=== PATIENT | female | born 1950 | race Caucasian/White ===

== ENCOUNTER 2016-03-30 08:29 | Emergency (ER) | payer MEDICARE ==
[2016-03-30] MEDS ORDERED: OPTIRAY 350 100 ML VIAL HMH IV ONE (08:30)
[2016-03-30] MEDS ORDERED: LIDOCAINE 2% VISC 15 ML UDC ONE (08:55)
[2016-03-30] MEDS ORDERED: ALU/MAG/SIM 30 ML UDC ONE (08:55)
[2016-03-30] MEDS ORDERED: ONDANSETRON ODT 4 MG TAB ONE (08:55)
[2016-03-30] MEDS ORDERED: SODIUM CHLORIDE 0.9% 1,000 ML ONE (09:55)
[2016-03-30] MEDS ORDERED: KETOROLAC 30 MG/ML VIAL ONE (10:51)
[2016-03-30] MEDS ORDERED: ONDANSETRON 4 MG VIAL ONE (10:51)
[2016-03-30] MEDS ORDERED: MORPHINE 4 MG/ML SYR ONE (13:26)
== END 2016-03-30 14:35 | disposition home or self-care (01) ==
LOC: ER 08:29
DX: K29.00 Acute gastritis without bleeding (principal); K29.80 Duodenitis without bleeding; R06.02 Shortness of breath; I10 Essential (primary) hypertension; E78.00 Pure hypercholesterolemia, unspecified; M06.9 Rheumatoid arthritis, unspecified; E07.9 Disorder of thyroid, unspecified
CPT/HCPCS: 36415; 71020; 74177; 80053; 81003; 82553; 83690; 84484; 85025; 93005

== ENCOUNTER 2016-03-31 13:13 | Inpatient (IN) | payer MEDICARE ==
[~2016-03-31] VITALS: Ht 165.1 cm; Wt 93.0 kg
[2016-03-31] VITALS (15 sets, daily range): BP systolic 107–128; RESP 16–24; TEMP 97.4–98.4
[~2016-03-31 13:13] MED LIST: ACETAMINOPHEN 1,000 MG/100 ML IV ONE; BUPIVACA/EPI 0.25% PF 30ML NERVEBLOCK ONE; FENTANYL 100 MCG/2 ML AMP IV ONE; GLYCOPYRROLATE 0.2 MG/ML VIAL IV ONE; LIDOCAINE 1% 20ML NERVEBLOCK ONE; NEOSTIGMINE 10 MG/10 ML VIAL IV ONE; ONDANSETRON 4 MG VIAL IV PUSH ONE; PROPOFOL 20 ML PER ML IV ONE; ROCURONIUM 50 MG VIAL IV ONE; SUCCINYLCHOLINE 20 MG/ML VL IV ONE
[2016-03-31] MEDS ORDERED: ONDANSETRON 4 MG VIAL ONE (14:42)
[2016-03-31] MEDS ORDERED: SODIUM CHLORIDE 0.9% 1,000 ML ONE (14:43)
[2016-03-31] MEDS ORDERED: DILAUDID 1 MG/ML AMP ONE ×2 (14:43→17:02)
[2016-03-31] MEDS ORDERED: LACT RINGERS 1,000 ML IV ONE (16:01)
[2016-03-31] MEDS ORDERED: MORPHINE 4 MG/ML SYR IV PRN (18:45)
[2016-03-31] MEDS ORDERED: ONDANSETRON 4 MG VIAL IV PRN (18:45)
[2016-03-31] MEDS ORDERED: DILAUDID 1 MG/ML AMP IV PRN (18:45)
[2016-03-31] MEDS ORDERED: MORPHINE 2 MG/ML SYR IV PRN (18:45)
[2016-03-31] MEDS ORDERED: MEPERIDINE 25 MG/ML IV PRN (18:45)
[2016-03-31] MEDS ORDERED: OXYCODONE 5 MG TAB PO PRN (18:45)
[2016-03-31] MEDS ORDERED: LEVOFLOXACIN 750 MG/150 ML 150 ML IV SCH (20:38)
[2016-03-31] MEDS ORDERED: DILAUDID 0.2 MG/ML PCA IV SCH (20:40)
[2016-03-31] MEDS ORDERED: SALINE FLUSH 10 ML FLUSH PRN (20:40)
[2016-03-31] MEDS ORDERED: PROMETHAZINE 25 MG/ML VIAL IV PRN (20:40)
[2016-03-31] MEDS: DILAUDID 0.2 MG/ML PCA IV SCH (21:24)
[2016-03-31] MEDS ORDERED: NEB-ALBUTEROL 2.5 MG/3 ML INH PRN (21:35)
[2016-03-31] MEDS ORDERED: [UNRECOGNIZED DRUG - OTHER] ONE (21:40)
[2016-04-01] VITALS (27 sets, daily range): BP systolic 92–127; RESP 14–23; TEMP 98–99.5
[2016-04-01] MEDS: SODIUM CHLORIDE 0.9% FLUSH BAG 500 ML IV SCH (06:00)
[2016-04-01] MEDS ORDERED: LACT RINGERS 1,000 ML IV ONE ×2 (07:45→13:45)
[2016-04-01] MEDS ORDERED: FAMOTIDINE 20 MG INJ IV SCH (08:00)
[2016-04-01] MEDS: SALINE FLUSH 10 ML FLUSH SCH ×2 (08:03→21:00)
[2016-04-01] MEDS: LEVOFLOXACIN 500 MG/100 ML 100 ML IV SCH (08:03)
[2016-04-01] MEDS: LEVOTHYROXINE 0.1 MG IV SCH (10:55)
[2016-04-01] MEDS: DUONEB INH PRN (12:10)
[2016-04-01] MEDS: SODIUM CHLORIDE 0.9% 1,000 ML IV SCH (13:58)
[2016-04-01] MEDS ORDERED: MORPHINE 4 MG/ML SYR IV PRN (18:20)
[2016-04-01] MEDS ORDERED: MORPHINE 2 MG/ML SYR IV PRN (18:20)
[2016-04-01] MEDS ORDERED: MEPERIDINE 25 MG/ML IV PRN (18:20)
[2016-04-01] MEDS ORDERED: OXYCODONE 5 MG TAB PO PRN (18:20)
[2016-04-01] MEDS ORDERED: ONDANSETRON 4 MG VIAL IV PRN (18:20)
[2016-04-01] MEDS ORDERED: DILAUDID 1 MG/ML AMP IV PRN (18:20)
[2016-04-01] MEDS: NEB-BROVANA 15 MCG/2 ML INH SCH (19:00)
[2016-04-01] MEDS: PANTOPRAZOLE 80 MG in SODIUM CHLORIDE 0.9% 250 ML IV SCH (21:00)
[2016-04-02] VITALS (27 sets, daily range): BP systolic 91–134; RESP 10–26; TEMP 98.4–100.5; BMI 34.1
[2016-04-02] MEDS ORDERED: MISSING DOSE XX ONE (01:45)
[2016-04-02] MEDS: PANTOPRAZOLE 80 MG in SODIUM CHLORIDE 0.9% 250 ML IV SCH ×3 (03:25→22:44)
[2016-04-02] MEDS: SODIUM CHLORIDE 0.9% 1,000 ML IV SCH ×3 (03:25→22:44)
[2016-04-02] MEDS: SODIUM CHLORIDE 0.9% FLUSH BAG 500 ML IV SCH (03:26)
[2016-04-02] MEDS: LEVOTHYROXINE 0.1 MG IV SCH (07:52)
[2016-04-02] MEDS: LEVOFLOXACIN 500 MG/100 ML 100 ML IV SCH (07:53)
[2016-04-02] MEDS: SALINE FLUSH 10 ML FLUSH SCH ×2 (07:54→20:09)
[2016-04-02] MEDS ORDERED: [UNRECOGNIZED DRUG - REMARK] XX SCH (08:00)
[2016-04-02] MEDS: NEB-BROVANA 15 MCG/2 ML INH SCH ×2 (08:08→20:02)
[2016-04-02] MEDS ORDERED: ALBUMIN HUMAN 25GM (25%) 100 ML IV ONE (08:45)
[2016-04-02] MEDS ORDERED: LACT RINGERS 500 ML IV ONE (08:50)
[2016-04-03] VITALS (20 sets, daily range): BP systolic 104–159; RESP 16–26; TEMP 97.9–99.9; Ht 165.1 cm; Wt 93.0 kg
[2016-04-03] MEDS: SODIUM CHLORIDE 0.9% 1,000 ML IV SCH ×2 (04:20→23:00)
[2016-04-03] MEDS: SODIUM CHLORIDE 0.9% FLUSH BAG 500 ML IV SCH (06:00)
[2016-04-03] MEDS: NEB-BROVANA 15 MCG/2 ML INH SCH ×2 (07:38→22:16)
[2016-04-03] MEDS: SALINE FLUSH 10 ML FLUSH SCH ×2 (08:58→19:54)
[2016-04-03] MEDS: LEVOTHYROXINE 0.1 MG IV SCH (08:58)
[2016-04-03] MEDS: LEVOFLOXACIN 500 MG/100 ML 100 ML IV SCH (08:59)
[2016-04-03] MEDS: PANTOPRAZOLE 80 MG in SODIUM CHLORIDE 0.9% 250 ML IV SCH ×2 (08:59→19:53)
[2016-04-03] MEDS ORDERED: MISSING DOSE XX ONE (21:45)
[2016-04-03] MEDS: DUONEB INH PRN (22:16)
[2016-04-04 03:13] VITALS: BP_SYST 156; RESP 18; TEMP 98.1
[2016-04-04] MEDS: SODIUM CHLORIDE 0.9% FLUSH BAG 500 ML IV SCH (05:07)
[2016-04-04] MEDS: PANTOPRAZOLE 80 MG in SODIUM CHLORIDE 0.9% 250 ML IV SCH (05:33)
[2016-04-04] MEDS: NEB-BROVANA 15 MCG/2 ML INH SCH ×2 (06:24→19:02)
[2016-04-04 07:30] VITALS: BP_SYST 163; RESP 15; TEMP 98.1
[2016-04-04] MEDS: SALINE FLUSH 10 ML FLUSH SCH ×2 (08:00→20:44)
[2016-04-04] MEDS ORDERED: POTASSIUM PHOSPHATE 45 MMOL in SODIUM CHLORIDE 0.9% 500 ML IV ONE (08:05)
[2016-04-04] MEDS: LEVOFLOXACIN 500 MG/100 ML 100 ML IV SCH (08:51)
[2016-04-04] MEDS: DILAUDID 0.2 MG/ML PCA IV SCH (09:00)
[2016-04-04] MEDS ORDERED: MISSING DOSE XX ONE (09:30)
[2016-04-04] MEDS: LEVOTHYROXINE 0.1 MG IV SCH (10:30)
[2016-04-04 12:14] VITALS: BP_SYST 170; RESP 15; TEMP 97.8
[2016-04-04] MEDS ORDERED: Losartan 25 MG TAB PO SCH (14:40)
[2016-04-04 15:43] VITALS: BP_SYST 163; RESP 15; TEMP 98.2
[2016-04-04 19:30] VITALS: BP_SYST 164; RESP 16; TEMP 98.8
[2016-04-04] MEDS: PANTOPRAZOLE 40 MG VIAL IV SCH (20:44)
[2016-04-04 23:26] VITALS: BP_SYST 153; RESP 18; TEMP 98.6
[2016-04-05] MEDS: SODIUM CHLORIDE 0.9% 1,000 ML IV SCH (00:06)
[2016-04-05] MEDS: SODIUM CHLORIDE 0.9% FLUSH BAG 500 ML IV SCH (05:57)
[2016-04-05] MEDS: NEB-BROVANA 15 MCG/2 ML INH SCH ×2 (07:12→19:40)
[2016-04-05 07:26] VITALS: BP_SYST 161; RESP 18; TEMP 98.8
[2016-04-05] MEDS ORDERED: MISSING DOSE XX ONE (07:50)
[2016-04-05] MEDS: LEVOTHYROXINE 0.1 MG IV SCH (08:56)
[2016-04-05] MEDS: SALINE FLUSH 10 ML FLUSH SCH ×2 (08:56→19:44)
[2016-04-05] MEDS: PANTOPRAZOLE 40 MG VIAL IV SCH ×2 (08:56→20:36)
[2016-04-05] MEDS: LEVOFLOXACIN 500 MG/100 ML 100 ML IV SCH (08:57)
[2016-04-05] MEDS: Losartan 50 MG TAB PO SCH (08:57)
[2016-04-05 11:12] VITALS: BP_SYST 166; RESP 16; TEMP 98
[2016-04-05 15:12] VITALS: BP_SYST 179; RESP 16; TEMP 99.2
[2016-04-05 19:42] VITALS: BP_SYST 157; RESP 18; TEMP 99.6
[2016-04-05 23:28] VITALS: BP_SYST 140; RESP 18; TEMP 98.6
[2016-04-06 03:35] VITALS: BP_SYST 104; RESP 18; TEMP 98
[2016-04-06] MEDS: SODIUM CHLORIDE 0.9% 1,000 ML IV SCH (03:36)
[2016-04-06] MEDS: SODIUM CHLORIDE 0.9% FLUSH BAG 500 ML IV SCH (04:17)
[2016-04-06] MEDS: NEB-BROVANA 15 MCG/2 ML INH SCH ×2 (06:15→19:09)
[2016-04-06 07:36] VITALS: BP_SYST 155; RESP 16; TEMP 97.9
[2016-04-06] MEDS: SALINE FLUSH 10 ML FLUSH SCH ×2 (07:39→21:21)
[2016-04-06] MEDS: PANTOPRAZOLE 40 MG VIAL IV SCH ×2 (08:14→21:20)
[2016-04-06] MEDS: LEVOTHYROXINE 0.1 MG IV SCH (08:15)
[2016-04-06] MEDS: LEVOFLOXACIN 500 MG/100 ML 100 ML IV SCH (08:15)
[2016-04-06] MEDS: Losartan 50 MG TAB PO SCH (08:16)
[2016-04-06] MEDS ORDERED: MAGNESIUM SULF 1 GM/100 ML 100 ML IV ONE (09:35)
[2016-04-06] MEDS ORDERED: POTASSIUM PHOSPHATE 15 MMOL in SODIUM CHLORIDE 0.9% 250 ML IV ONE (09:35)
[2016-04-06] MEDS ORDERED: KCL 20 MEQ/15 ML UDC PO ONE (09:35)
[2016-04-06] MEDS: DILAUDID 0.2 MG/ML PCA IV SCH (10:36)
[2016-04-06] MEDS ORDERED: SODIUM CHLORIDE 0.9% 1,000 ML IV SCH (11:05)
[2016-04-06 11:36] VITALS: BP_SYST 150; RESP 16; TEMP 98.6
[2016-04-06] MEDS: HCTZ 12.5 MG CAP PO SCH (12:37)
[2016-04-06 15:04] VITALS: BP_SYST 159; RESP 16; TEMP 99.2
[2016-04-06] MEDS ORDERED: ACETAMINOPHEN 325 MG TAB PO PRN (19:00)
[2016-04-06 19:49] VITALS: BP_SYST 160; RESP 16; TEMP 98.3
[2016-04-06] MEDS: FLUOXETINE 20 MG CAP PO SCH (21:20)
[2016-04-06 23:37] VITALS: BP_SYST 126; RESP 18; TEMP 98.7
[2016-04-07 03:18] VITALS: BP_SYST 127; RESP 18; TEMP 98.2
[2016-04-07] MEDS: SODIUM CHLORIDE 0.9% FLUSH BAG 500 ML IV SCH (05:26)
[2016-04-07] MEDS: ONDANSETRON 4 MG VIAL IV PUSH PRN ×3 (05:26→17:43)
[2016-04-07] MEDS: LEVOTHYROXINE 0.088 MG TAB PO SCH (06:08)
[2016-04-07] MEDS: NEB-BROVANA 15 MCG/2 ML INH SCH ×2 (06:13→20:11)
[2016-04-07] MEDS: SALINE FLUSH 10 ML FLUSH SCH ×2 (08:00→22:00)
[2016-04-07 08:04] VITALS: BP_SYST 131; RESP 18; TEMP 98.4
[2016-04-07] MEDS: Losartan 50 MG TAB PO SCH (08:26)
[2016-04-07] MEDS: FLUOXETINE 20 MG CAP PO SCH ×2 (08:26→22:00)
[2016-04-07] MEDS: PRAVASTATIN 20 MG TAB PO SCH (08:26)
[2016-04-07] MEDS: PANTOPRAZOLE 40 MG VIAL IV SCH (08:26)
[2016-04-07] MEDS: LEVOFLOXACIN 500 MG/100 ML 100 ML IV SCH (08:28)
[2016-04-07] MEDS: HCTZ 12.5 MG CAP PO SCH (08:29)
[2016-04-07] MEDS ORDERED: DILAUDID 1 MG/ML AMP IV PRN (10:15)
[2016-04-07 11:06] VITALS: BP_SYST 134; RESP 16; TEMP 98
[2016-04-07] MEDS ORDERED: ALU/MAG/SIM 30 ML UDC PO ONE (12:20)
[2016-04-07 15:14] VITALS: BP_SYST 132; RESP 18; TEMP 98.3
[2016-04-07] MEDS: PANTOPRAZOLE 40 MG TAB PO SCH (17:43)
[2016-04-07 20:27] VITALS: BP_SYST 143; RESP 16; TEMP 98.1
[2016-04-07 23:14] VITALS: BP_SYST 134; RESP 16; TEMP 98
[2016-04-08 03:13] VITALS: BP_SYST 128; RESP 18; TEMP 97.9
[2016-04-08] MEDS: SODIUM CHLORIDE 0.9% FLUSH BAG 500 ML IV SCH (05:41)
[2016-04-08] MEDS: LEVOTHYROXINE 0.088 MG TAB PO SCH (06:06)
[2016-04-08] MEDS: PANTOPRAZOLE 40 MG TAB PO SCH ×2 (06:07→16:24)
[2016-04-08] MEDS: NEB-BROVANA 15 MCG/2 ML INH SCH ×2 (06:17→20:16)
[2016-04-08 07:32] VITALS: BP_SYST 134; RESP 16; TEMP 97.8
[2016-04-08] MEDS: HCTZ 12.5 MG CAP PO SCH (08:34)
[2016-04-08] MEDS: SALINE FLUSH 10 ML FLUSH SCH ×2 (08:34→20:02)
[2016-04-08] MEDS: PRAVASTATIN 20 MG TAB PO SCH (08:34)
[2016-04-08] MEDS: FLUOXETINE 20 MG CAP PO SCH ×2 (08:35→20:02)
[2016-04-08] MEDS: Losartan 50 MG TAB PO SCH (08:35)
[2016-04-08] MEDS: OMNIPAQUE 240 MG/ML, 50 ML PO SCH ×2 (09:41→11:43)
[2016-04-08 11:29] VITALS: BP_SYST 122; RESP 16; TEMP 98.2
[2016-04-08 14:59] VITALS: BP_SYST 137; RESP 16; TEMP 97.7
[2016-04-08] MEDS ORDERED: OPTIRAY 350 100 ML VIAL HMH IV ONE (16:03)
[2016-04-08 19:50] VITALS: BP_SYST 148; RESP 16; TEMP 98.5
[2016-04-09] VITALS (7 sets, daily range): BP systolic 126–147; RESP 16–20; TEMP 98.2–98.9
[2016-04-09] MEDS: SODIUM CHLORIDE 0.9% FLUSH BAG 500 ML IV SCH (05:04)
[2016-04-09] MEDS: LEVOTHYROXINE 0.088 MG TAB PO SCH (05:57)
[2016-04-09] MEDS: PANTOPRAZOLE 40 MG TAB PO SCH ×2 (05:57→16:11)
[2016-04-09] MEDS: NEB-BROVANA 15 MCG/2 ML INH SCH ×2 (06:20→20:22)
[2016-04-09] MEDS ORDERED: KCL CR 20 MEQ TAB PO ONE (08:00)
[2016-04-09] MEDS ORDERED: Furosemide 20 MG/2 ML VIAL IV ONE ×2 (08:00→13:50)
[2016-04-09] MEDS: HCTZ 12.5 MG CAP PO SCH (08:38)
[2016-04-09] MEDS: SALINE FLUSH 10 ML FLUSH SCH ×2 (08:38→20:35)
[2016-04-09] MEDS: FLUOXETINE 20 MG CAP PO SCH ×2 (08:38→20:34)
[2016-04-09] MEDS: Losartan 50 MG TAB PO SCH (08:38)
[2016-04-09] MEDS: PRAVASTATIN 20 MG TAB PO SCH (08:38)
[2016-04-10] VITALS (7 sets, daily range): BP systolic 102–142; RESP 16–20; TEMP 97.8–98.1
[2016-04-10] MEDS: SODIUM CHLORIDE 0.9% FLUSH BAG 500 ML IV SCH (05:02)
[2016-04-10] MEDS: LEVOTHYROXINE 0.088 MG TAB PO SCH (06:35)
[2016-04-10] MEDS: PANTOPRAZOLE 40 MG TAB PO SCH ×2 (06:35→16:56)
[2016-04-10] MEDS: NEB-BROVANA 15 MCG/2 ML INH SCH ×2 (06:59→18:12)
[2016-04-10] MEDS: FLUOXETINE 20 MG CAP PO SCH ×2 (07:40→21:16)
[2016-04-10] MEDS: HCTZ 12.5 MG CAP PO SCH (07:40)
[2016-04-10] MEDS: SALINE FLUSH 10 ML FLUSH SCH ×2 (07:41→21:16)
[2016-04-10] MEDS: PRAVASTATIN 20 MG TAB PO SCH (07:41)
[2016-04-10] MEDS: Losartan 50 MG TAB PO SCH (07:41)
[2016-04-10] MEDS ORDERED: CLINDAMYCIN 300 MG CAP PO SCH (09:00)
[2016-04-10] MEDS: CLINDAMYCIN 150 MG CAP PO SCH ×3 (11:05→21:16)
[2016-04-11] VITALS (7 sets, daily range): BP systolic 98–133; RESP 16–18; TEMP 98.1–98.3
[2016-04-11] MEDS: SODIUM CHLORIDE 0.9% FLUSH BAG 500 ML IV SCH (05:19)
[2016-04-11] MEDS: PANTOPRAZOLE 40 MG TAB PO SCH (05:59)
[2016-04-11] MEDS: LEVOTHYROXINE 0.088 MG TAB PO SCH (05:59)
[2016-04-11] MEDS: SALINE FLUSH 10 ML FLUSH SCH (07:54)
[2016-04-11] MEDS: PRAVASTATIN 20 MG TAB PO SCH (07:55)
[2016-04-11] MEDS: Losartan 50 MG TAB PO SCH (07:55)
[2016-04-11] MEDS: CLINDAMYCIN 150 MG CAP PO SCH (07:55)
[2016-04-11] MEDS: FLUOXETINE 20 MG CAP PO SCH (07:55)
[2016-04-11] MEDS: HCTZ 12.5 MG CAP PO SCH (07:55)
[2016-04-11] MEDS: NEB-BROVANA 15 MCG/2 ML INH SCH (08:10)
[2016-04-11] MEDS ORDERED: KCL 20 MEQ/15 ML UDC PO ONE (09:30)
[2016-04-11] MEDS ORDERED: KCL CR 20 MEQ TAB PO ONE (12:20)
== END 2016-04-11 15:38 | disposition home or self-care (01) | DRG 326 ==
LOC: ENRESERV → ENRESERVDT → ENRESERVTM → ER 13:13 → SDS 20:38 → 5THW 22:09 → ICU 04-01 21:08 → 5THE 04-03 17:17
PROVIDERS: ADMIT Surgery; ATTEND Surgery
PROC: 0W9G30Z Drainage of Peritoneal Cavity with Drainage Device, Percutaneous Approach (ICD-10-PCS; 2016-03-31)
PROC: 0DU947Z Supplement Duodenum with Autologous Tissue Substitute, Percutaneous Endoscopic Approach (ICD-10-PCS; principal; 2016-03-31 18:19)
PROC: 0DQ90ZZ Repair Duodenum, Open Approach (ICD-10-PCS; 2016-04-01)
PROC: 0W9G00Z Drainage of Peritoneal Cavity with Drainage Device, Open Approach (ICD-10-PCS; 2016-04-01)
DX: K26.5 Chronic or unspecified duodenal ulcer with perforation (principal); A41.9 Sepsis, unspecified organism; J96.01 Acute respiratory failure with hypoxia; R65.20 Severe sepsis without septic shock; N17.9 Acute kidney failure, unspecified; J98.11 Atelectasis; T85.638A Leakage of other specified internal prosthetic devices, implants and grafts, initial encounter; T81.4XXA Infection following a procedure, initial encounter; L03.311 Cellulitis of abdominal wall; Z87.891 Personal history of nicotine dependence; Z79.82 Long term (current) use of aspirin; E03.9 Hypothyroidism, unspecified; K21.9 Gastro-esophageal reflux disease without esophagitis; M06.9 Rheumatoid arthritis, unspecified; F32.9 Major depressive disorder, single episode, unspecified; R74.0 Nonspecific elevation of levels of transaminase and lactic acid dehydrogenase [LDH]; R73.9 Hyperglycemia, unspecified; E83.51 Hypocalcemia; Y83.2 Surgical operation with anastomosis, bypass or graft as the cause of abnormal reaction of the patient, or of later complication, without mention of misadventure at the time of the procedure; Y92.239 Unspecified place in hospital as the place of occurrence of the external cause; E87.70 Fluid overload, unspecified; J44.9 Chronic obstructive pulmonary disease, unspecified
CPT/HCPCS: 36415; 71010; 71020; 74000; 74020; 74022; 74177; 74241; 80048; 80053; 81001; 81003; 82553; 83605; 83690; 83735; 84100; 84484; 85007; 85025; 85027; 87071; 87088; 93005; 94640; 94762; 94799; 96361; 96374; 96375; 96376; 99223; 99232; 99233; 99291